=== PATIENT | female | born 1990 | race Caucasian/White ===

== ENCOUNTER → 2016-10-15 | Outpatient (CLI) | payer OTHER | END | disposition home or self-care (01) | LOC: MRI 11:45 | DX: M25.552 Pain in left hip (principal) ==

== ENCOUNTER → 2019-03-03 | Outpatient (CLI) | payer OTHER ==
[~2019-03-03] MED LIST: CENTRUM SILVER1 EAC4 PO; IBUPROFEN 200200 M1 PO; VITAMIN D1000 UNI2 PO
== END | disposition home or self-care (01) ==
LOC: RAD 09:31
DX: M16.11 Unilateral primary osteoarthritis, right hip (principal); M86.8X8 Other osteomyelitis, other site; M25.852 Other specified joint disorders, left hip; Z79.899 Other long term (current) drug therapy; Z98.890 Other specified postprocedural states

== ENCOUNTER → 2019-10-06 | Outpatient (CLI) | payer OTHER ==
[2019-10-06 09:15] LABS: ABSOLUTE NEUTROPHILS 3.2 thou/uL (1.4-8.2); BASOPHILS 0.5 % (0.0-2.0); EOSINOPHILS 2.2 % (0.0-3.0); HEMATOCRIT 39.3 % (37.0-47.0); HEMOGLOBIN 13.3 gm/dL (12.0-15.0); LYMPHOCYTES 33.3 % (24.0-44.0); MCHC 33.8 g/dL (28.0-37.0); MCV 91.8 fL (80.0-100.0); MONOCYTES 9.1 % (1.0-8.0); PLATELET COUNT 224 thou/uL (150-400); POLYS 54.9 % (36.0-66.0); RBC 4.28 mil/uL (4.20-5.00); RDW 12.4 % (10.5-14.5); URINE BILIRUBIN NEGATIVE (Negative); URINE BLOOD NEGATIVE (Negative); URINE CLARITY CLEAR; URINE COLOR YELLOW; URINE GLUCOSE-RANDOM* NEGATIVE (Negative); URINE KETONES NEGATIVE (Negative); URINE LEUKOCYTES-REFLEX NEGATIVE (Negative); URINE NITRITE-REFLEX NEGATIVE (Negative); URINE PROTEIN (DIPSTICK) NEGATIVE (Negative); URINE SPECIFIC GRAVITY <= 1.005 (1.005-1.035); URINE UROBILINOGEN 0.2 E.U./dl (0.2-1.0); WBC 5.9 thou/uL (4.0-11.0)
[2019-10-06 09:37] LABS: ALBUMIN 4.4 g/dL (3.4-5.0); ANION GAP 7 mmol/L (7-16); BUN 12 mg/dL (7-18); CALCIUM 9.7 mg/dL (8.5-10.1); CHLORIDE 100 mmol/L (98-107); CHOLESTEROL 176 mg/dL (<200); CO2 30 mmol/L (21-32); CREATININE 0.7 mg/dL (0.6-1.0); GLUCOSE 86 mg/dL (74-106); HDL CHOLESTEROL 80 mg/dL (>40); LDL CHOLESTEROL 89 mg/dL (<100); POTASSIUM 3.8 mmol/L (3.5-5.1); SGOT 15 U/L (15-37); SGPT 23 U/L (30-65); SODIUM 137 mmol/L (136-145); TC:HDL 2.2 Ratio (Not establshd); TOTAL BILIRUBIN 0.5 mg/dL (0.2-1.0); TOTAL PROTEIN 7.4 g/dL (6.4-8.2); TRIGLYCERIDE 35 mg/dL (<150); VLDL 7 mg/dL (<40)
== END ==
LOC: LABMALL 08:12
PROVIDERS: ATTEND Family Medicine
DX: Z00.00 Encounter for general adult medical examination without abnormal findings (principal)

== ENCOUNTER → 2020-03-05 | Outpatient (CLI) | payer OTHER ==
[~2020-03-05] MED LIST changes: +ECHINACEA125 MG PO; +LEXAPRO20 MG PO; +MAGNESIUM L-LAC84 MG PO; +NEPHRO-VITE RX1 TA1 PO; +OMEGA 3 1,0001 EACH PO; +PROAIR HFA8.5 GM INH; +PROBIOTIC1 EAC7 PO; +VITAMIN D-40010 MCG PO; +VYVANSE50 MG PO; +[UNRECOGNIZED DRUG - OTHER] PO; +[UNRECOGNIZED DRUG - OTHER] PO
== END ==
LOC: LAB 08:09
PROVIDERS: ATTEND Orthopaedic Surgery Sports Medicine
DX: Z01.812 Encounter for preprocedural laboratory examination (principal); Z20.828 Contact with and (suspected) exposure to other viral communicable diseases

== ENCOUNTER 2020-03-07 06:13 | Day surgery (SDC) | payer OTHER ==
[~2020-03-07] VITALS: Ht 160 cm; Wt 68.9 kg
--- NOTE | ~2020-03-07 | O ---
[facility] [place] [address] [address] [place] [address] OPERATIVE REPORT Name: TORI ROOT Room #: DEP [facility].#: [id number] Admission: 03/07/20 Attend Phys: Jerrell Oseguera MD Discharge: 03/07/20 Date of : 88 Report #: [id number] THIS REPORT FOR: cc: Omkar Olivas MD, Neal A. MD McCabe,Jerrell Moran MD ~ DATE OF SERVICE: 03/07/2020 SURGEON: Jerrell Oseguera MD CUFFER: Sendy Mckay NP. INDICATION FOR CUFFER: Extremity positioning, suture management, arthroscope management, assistance with repair. PREOPERATIVE DIAGNOSES: 1. Right hip pain. 2. Right hip femoroacetabular impingement. 3. Right hip labral tear. POSTOPERATIVE DIAGNOSES: 1. Right hip pain. 2. Right hip femoroacetabular impingement. 3. Right hip labral tear. PROCEDURES: 1. Right hip arthroscopic labral repair. 2. Right hip arthroscopic Cam osteochondroplasty. 3. Right hip arthroscopic subspine decompression. COMPLICATIONS: None. DRAINS: None. SPECIMENS: None. ANESTHESIA: General with regional. FINDINGS: 1. Chondral labral junction disruption with an anterior labral tear with minimal to no articular cartilage damage treated with Adriana CinchLock suture anchor x 2. 2. 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 3. Capsular repair with #2 Vicryl x 4. 4. Dense prominent anterior inferior iliac spine causing extraarticular [facility] [address] [place] [address] OPERATIVE REPORT Name: TORI ROOT Room #: DEP [facility]#: [id number] Admission: 03/07/20 Attend Phys: Jerrell Oseguera MD Discharge: 03/07/20 Date of : 88 Report #: [id number] subspine decompression requiring additional surgical dissection and bony resection to address this component of her current injury. 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 She had previously undergone successful arthroscopic management of her left hip and had similar symptoms and findings on the right hip as well. She developed symptoms subsequently successful surgical treatment of left hip. The right hip was managed with rest, activity modification, physical therapy, oral medicines, injections. She had positive pain response from the injection. The treatment was performed for well over a year. Her x-rays showed an alpha angle of approximately 65 degrees consistent with Cam impingement. She also had a prominent anterior inferior iliac spine causing a small crossover sign, which was the source of the extraarticular hip impingement. She had an MRI, which showed a full thickness anterior labral tear. Risks, benefits, alternatives and indications of surgery were discussed with her in detail that had been previously. Risks include pain, bleeding, infection, injury to nerves or blood vessels, persistent pain despite surgical intervention, stiffness, need for further surgery as well as complications related to anesthesia such as stroke, heart attack, pulmonary complications, thromboembolic disease and . Despite these risks, she wished to proceed. PROCEDURE IN DETAIL: After right lower extremity was correctly identified in the preoperative holding area as the operative extremity, the patient underwent regional nerve block. She was then taken to the operating room where general anesthesia was induced without complication. She was padded appropriately. Prophylactic antibiotics were administered at appropriate time. Right hip was prepped and draped in standard sterile fashion. Time-out procedure was performed under C-arm fluoroscopy. Traction was applied to right lower extremity and an anterolateral viewing portal was established. A mid anterior portal was established as well. There was erythema and synovitis, which would be the reason for the continuous passive motion machine usage postoperatively in order to prevent scarring and stiffness as these can be reasons for reoperation in this patient population. After the transverse capsulotomy was performed and diagnostic arthroscopy revealed the above soft tissue findings, we proceeded with debridement of the capsule on the dorsal side of the labrum to allow access to the acetabular rim and subspine region. There was a very dense subspine impingement lesion and this was visualized quite clearly on the radiographs preoperatively and intraoperatively. The capsule was dissected just around this base portion of the inferior iliac spine, so as to preserve as much capsule as possible and then a bur was used to perform a subspine decompression in typical fashion, resecting the bone proximal to the location of the acetabular rim, the bur was then used to gently decorticate the acetabular rim to create a fresh bleeding surface for labral refixation. No rim resection was performed. [facility] suture [address] [address] OPERATIVE REPORT Name: TORI ROOT Room #: DEP [facility] [place]#: [id number] Admission: 03/07/20 Attend Phys: Jerrell Oseguera MD Discharge: 03/07/20 Date of : 88 Report #: [id number] anchors were then used x 2 to reduce the labrum of the acetabular rim and good compression was achieved. Then, the chondral labral junction was probed and found to be stable at this point, traction was let down. The hip was flexed up. Attention was turned towards peripheral compartment. The transverse capsulotomy was extended down the neck in a T fashion and then a bur was used to perform a thorough Cam osteoplasty. I removed the instruments and assessed the resection, identified some additional bone distally that needed to be resected and placed the instruments back into the hip, completed the Cam osteoplasty. I then removed the instruments again, brought C-arm in, assessed the resection. I was happy with the appearance of the resection at this point and then placed the instruments back in the hip, lavaged the bony debris out of the hip and then closed the T-shaped capsulotomy with a total of four #2 Vicryl sutures. At this point, the instruments were removed. Portal sites were closed. Sterile dressing was then applied. The patient was awakened from anesthesia and taken to recovery room in stable condition. There were no complications. All counts were reported correct. By: [id number] Jerrell Oseguera MD /nt
[2020-03-07 06:40] VITALS: BP 115/67
[2020-03-07 10:22] VITALS: BP 115/67
== END 2020-03-07 10:50 | disposition home or self-care (01) ==
LOC: OR 06:13 → TBA 06:14 → OR 10:50
PROVIDERS: ATTEND Orthopaedic Surgery Sports Medicine
DX: M25.551 Pain in right hip (principal); S73.101A Unspecified sprain of right hip, initial encounter; M25.851 Other specified joint disorders, right hip; J45.909 Unspecified asthma, uncomplicated; F32.9 Major depressive disorder, single episode, unspecified; F41.9 Anxiety disorder, unspecified; X58.XXXA Exposure to other specified factors, initial encounter; Y93.89 Activity, other specified; Y92.89 Other specified places as the place of occurrence of the external cause; Y99.8 Other external cause status; Z98.890 Other specified postprocedural states; Z79.899 Other long term (current) drug therapy
CPT/HCPCS: 50010; 50101; 50386; 51320; 51538; 52304; 56524; 56527; 57092; 57103; 58273; 58274; 62110; 62900; 70005

== ENCOUNTER → 2020-06-28 | Outpatient (CLI) | payer OTHER | LOC: ULTRA 13:17 | PROVIDERS: ATTEND Nurse Practitioner | DX: N63.0 Unspecified lump in unspecified breast (principal) ==

== ENCOUNTER → 2020-11-23 | Outpatient (CLI) | payer OTHER ==
[2020-11-23 11:31] LABS: BASOPHILS 0.8 % (0.0-2.0); EOSINOPHILS 4.2 % (0.0-3.0); HEMATOCRIT 39.1 % (37.0-47.0); HEMOGLOBIN 13.3 gm/dL (12.0-15.0); MCH 31.2 pg (26.0-34.0); MCHC 34.1 g/dL (28.0-37.0); MCV 91.5 fL (80.0-100.0); MONOCYTES 12.2 % (1.0-8.0); PLATELET COUNT 278 thou/uL (150-400); POLYS 45.8 % (36.0-66.0); RBC 4.27 mil/uL (4.20-5.00); RDW 12.6 % (10.5-14.5); WBC 4.4 thou/uL (4.0-11.0)
[2020-11-23 11:47] LABS: URINE BILIRUBIN NEGATIVE (Negative); URINE BLOOD NEGATIVE (Negative); URINE CLARITY CLEAR; URINE COLOR YELLOW; URINE GLUCOSE-RANDOM* NEGATIVE (Negative); URINE KETONES NEGATIVE (Negative); URINE LEUKOCYTES-REFLEX NEGATIVE (Negative); URINE NITRITE-REFLEX NEGATIVE (Negative); URINE PROTEIN (DIPSTICK) NEGATIVE (Negative); URINE SPECIFIC GRAVITY >= 1.030 (1.005-1.035); URINE UROBILINOGEN 0.2 E.U./dl (0.2-1.0)
[2020-11-23 11:51] LABS: ALBUMIN 4.1 g/dL (3.4-5.0); ANION GAP 6 mmol/L (7-16); BUN 11 mg/dL (7-18); CALCIUM 8.9 mg/dL (8.5-10.1); CHLORIDE 100 mmol/L (98-107); CHOLESTEROL 178 mg/dL (<200); CO2 32 mmol/L (21-32); CREATININE 0.8 mg/dL (0.6-1.0); GLUCOSE 91 mg/dL (74-106); HDL CHOLESTEROL 77 mg/dL (>40); LDL CHOLESTEROL 94 mg/dL (<100); POTASSIUM 3.6 mmol/L (3.5-5.1); SGOT 17 U/L (15-37); SGPT 21 U/L (30-65); SODIUM 138 mmol/L (136-145); TC:HDL 2.3 Ratio (Not establshd); TOTAL BILIRUBIN 0.3 mg/dL (0.2-1.0); TOTAL PROTEIN 7.3 g/dL (6.4-8.2); TRIGLYCERIDE 35 mg/dL (<150); VLDL 7 mg/dL (<40)
== END ==
LOC: LAB 09:47
PROVIDERS: ATTEND Family Medicine
DX: Z00.00 Encounter for general adult medical examination without abnormal findings (principal)

== ENCOUNTER 2021-02-02 23:39 | Emergency (ER) | payer OTHER ==
[~2021-02-02] VITALS: Ht 160 cm; Wt 69.0 kg
[2021-02-03] MEDS ORDERED: ASA81BEC PO (00:05)
[2021-02-03] MEDS ORDERED: AUGMENTIN 875-1 EACH PO ×2 (02:23→02:49)
[2021-02-03] MEDS ORDERED: HYDROCODON-ACE1 EAC7 PO (02:24)
[2021-02-03] MEDS ORDERED: NORCO5 PO (02:49)
[2021-02-03 02:54] VITALS: BP 108/54
== END 2021-02-03 02:55 | disposition home or self-care (01) ==
LOC: ER 23:39
DX: S01.511A Laceration without foreign body of lip, initial encounter (principal); J45.909 Unspecified asthma, uncomplicated; F41.9 Anxiety disorder, unspecified; F32.9 Major depressive disorder, single episode, unspecified; Z98.890 Other specified postprocedural states; Z79.82 Long term (current) use of aspirin; Z79.51 Long term (current) use of inhaled steroids; Z79.891 Long term (current) use of opiate analgesic; Z79.899 Other long term (current) drug therapy; W54.0XXA Bitten by dog, initial encounter; Y93.89 Activity, other specified; Y92.89 Other specified places as the place of occurrence of the external cause; Y99.8 Other external cause status